=== PATIENT | female | born 1970 | race African-American/Black ===

== ENCOUNTER 2017-09-01 06:59 | Emergency (ER) | payer OTHER ==
[~2017-09-01] VITALS: Ht 165.1 cm; Wt 60.3 kg
[~2017-09-01 06:59] MED LIST: ABILIFY10 MG PO; AUGMENTIN 875875 MG PO; BACITRACIN 500U30 G1 TOP; CELEXA10 MG PO; HYDROCODON-ACE1 EAC7 PO; IBUPROFEN 600600 M1 PO; KEFLEX500 MG PO; NAPROSYN500 MG PO; NORCO 5-325 TA1 EACH PO; NORFLEX100 MG PO; PERCOCET 5-3251 EACH PO; PERCOCET PO; SILVADENE20 GM TP; TRAZODONE HCL50 MG PO
[2017-09-01 07:36] LABS: ABSOLUTE NEUTROPHILS 5.2 thou/uL (1.4-8.2); BASOPHILS 0.9 % (0.0-2.0); HEMATOCRIT 39.1 % (37.0-47.0); HEMOGLOBIN 13.6 gm/dL (12.0-15.0); LYMPHOCYTES 19.4 % (24.0-44.0); MCH 28.8 pg (26.0-34.0); MCHC 34.7 g/dL (28.0-37.0); MONOCYTES 5.4 % (1.0-8.0); PLATELET COUNT 214 thou/uL (150-400); POLYS 73.3 % (36.0-66.0); RBC 4.72 mil/uL (4.20-5.00); RDW 13.4 % (10.5-14.5)
[2017-09-01 07:48] LABS: CALCIUM 9.4 mg/dL (8.5-10.1); CREATININE 0.9 mg/dL (0.6-1.0)
[2017-09-01 07:54] LABS: ALBUMIN 3.7 g/dL (3.4-5.0); DIRECT BILIRUBIN 0.1 mg/dL (<0.1-0.3); TOTAL BILIRUBIN 0.4 mg/dL (<0.1-1.0); TOTAL PROTEIN 7.7 g/dL (6.4-8.2)
[2017-09-01 08:14] LABS: URINE BILIRUBIN NEGATIVE (Negative); URINE BLOOD NEGATIVE (Negative); URINE CLARITY CLEAR; URINE COLOR YELLOW; URINE GLUCOSE-RANDOM* NEGATIVE (Negative); URINE KETONES NEGATIVE (Negative); URINE LEUKOCYTES NEGATIVE (Negative); URINE NITRITE NEGATIVE (Negative); URINE PROTEIN (DIPSTICK) NEGATIVE (Negative); URINE SPECIFIC GRAVITY 1.025 (1.005-1.035); URINE UROBILINOGEN 0.2 E.U./dl (0.2-1.0)
[2017-09-01] MEDS ORDERED: ZOFRAN ODT4 MG PO (08:32)
[2017-09-01] MEDS ORDERED: PHENERGAN 25 MG25 M1 PO (08:32)
[2017-09-01] MEDS ORDERED: PROMS25 WY RECTAL (08:32)
[2017-09-01 09:24] VITALS: BP 118/92
== END 2017-09-01 09:25 | disposition home or self-care (01) ==
LOC: ER 06:59
PROVIDERS: Emergency Medicine
DX: F12.188 Cannabis abuse with other cannabis-induced disorder (principal); R19.7 Diarrhea, unspecified; I10 Essential (primary) hypertension; Z90.710 Acquired absence of both cervix and uterus; Z91.040 Latex allergy status; Z88.1 Allergy status to other antibiotic agents

== ENCOUNTER 2019-10-20 18:35 | Emergency (ER) | payer OTHER ==
[~2019-10-20] VITALS: Ht 162.6 cm; Wt 64.9 kg
[~2019-10-20 18:35] MED LIST changes: +PHENERGAN 25 MG25 M1 PO; +PROMS25 WY RECTAL; +ZOFRAN ODT4 MG PO; +ZOFRAN4 MG PO
[2019-10-20 20:24] VITALS: BP 142/91
== END 2019-10-20 20:25 | disposition home or self-care (01) ==
LOC: ER 18:35
DX: F10.920 Alcohol use, unspecified with intoxication, uncomplicated (principal); R11.2 Nausea with vomiting, unspecified; I10 Essential (primary) hypertension; E11.9 Type 2 diabetes mellitus without complications; F17.210 Nicotine dependence, cigarettes, uncomplicated; Z79.899 Other long term (current) drug therapy; Z91.040 Latex allergy status; Z88.1 Allergy status to other antibiotic agents

== ENCOUNTER 2020-03-13 09:05 | Emergency (ER) | payer OTHER ==
[~2020-03-13] VITALS: Ht 165.1 cm; Wt 65.8 kg
[2020-03-13] MEDS ORDERED: DESYREL150 MG PO (09:15)
[2020-03-13] MEDS ORDERED: WELLBUTRIN 75 M75 M1 PO (09:15)
[2020-03-13 09:45] LABS: URINE BLOOD NEGATIVE (Negative); URINE CLARITY CLOUDY; URINE COLOR YELLOW; URINE GLUCOSE-RANDOM* NEGATIVE (Negative); URINE KETONES 2+ (Negative); URINE LEUKOCYTES-REFLEX NEGATIVE (Negative); URINE NITRITE-REFLEX NEGATIVE (Negative); URINE PROTEIN (DIPSTICK) TRACE (Negative); URINE SPECIFIC GRAVITY 1.025 (1.005-1.035)
[2020-03-13 09:46] LABS: ICTOTEST (BILI CONFIRMATORY) Negative (Negative); URINE BILIRUBIN NEGATIVE (Negative)
[2020-03-13 12:10] LABS: HEMATOCRIT 40.7 % (37.0-47.0); HEMOGLOBIN 13.3 gm/dL (12.0-15.0); MCH 28.2 pg (26.0-34.0); MCHC 32.6 g/dL (28.0-37.0); MCV 86.6 fL (80.0-100.0); RBC 4.7 mil/uL (4.20-5.00); RDW 13.5 % (10.5-14.5); WBC 5.7 thou/uL (4.0-11.0)
[2020-03-13 13:04] LABS: CALCIUM 8.9 mg/dL (8.5-10.1); CREATININE 0.9 mg/dL (0.6-1.0); POTASSIUM 3.3 mmol/L (3.5-5.1)
[2020-03-13 13:09] LABS: ALBUMIN 3.6 g/dL (3.4-5.0); TOTAL BILIRUBIN 0.7 mg/dL (0.2-1.0); TOTAL PROTEIN 7.6 g/dL (6.4-8.2)
[2020-03-13 13:40] VITALS: BP 187/98
--- NOTE | 2020-03-15 07:28 | EKG ---
[place] [address] 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: : 1970 Requested By: Broderick Lundy Order Number: [id number] MD: Rosales Caceres Measurements Intervals [place] Rate: 67 P: 63 W[place]: 148 QRS: 0 QRSD: 82 T: 40 QT: 403 QTc: 426 Interpretive Statements Sinus rhythm No significant abnormality Compared to ECG 05/10/2010 11:14:45 No significant changes found Electronically Signed On 03-15-2020 7:28:27 [employer]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
== END 2020-03-13 13:50 | disposition home or self-care (01) ==
LOC: ER 09:05
PROVIDERS: Emergency Medicine
DX: F12.988 Cannabis use, unspecified with other cannabis-induced disorder (principal); R11.10 Vomiting, unspecified; I10 Essential (primary) hypertension; E11.9 Type 2 diabetes mellitus without complications; F17.210 Nicotine dependence, cigarettes, uncomplicated; Z79.899 Other long term (current) drug therapy; Z88.1 Allergy status to other antibiotic agents; Z91.040 Latex allergy status

== ENCOUNTER 2020-11-08 20:38 | Emergency (ER) | payer OTHER ==
[~2020-11-08] VITALS: Ht 165.1 cm; Wt 64.0 kg
[~2020-11-08 20:38] MED LIST changes: +DESYREL150 MG PO; +WELLBUTRIN 75 M75 M1 PO
[2020-11-08 20:40] VITALS: BP 127/81
[2020-11-08] MEDS ORDERED: DOXYCYCLINE 10100 MG PO (21:02)
[2020-11-08] MEDS ORDERED: HYDROCODON-ACE1 EAC7 PO (21:02)
== END 2020-11-08 21:31 | disposition home or self-care (01) ==
LOC: ER 20:38
DX: T24.002A Burn of unspecified degree of unspecified site of left lower limb, except ankle and foot, initial encounter (principal); T31.0 Burns involving less than 10% of body surface; I10 Essential (primary) hypertension; E11.9 Type 2 diabetes mellitus without complications; F12.90 Cannabis use, unspecified, uncomplicated; F17.210 Nicotine dependence, cigarettes, uncomplicated; Z79.1 Long term (current) use of non-steroidal anti-inflammatories (NSAID); Z79.899 Other long term (current) drug therapy; Z88.1 Allergy status to other antibiotic agents; Z91.040 Latex allergy status; X16.XXXA Contact with hot heating appliances, radiators and pipes, initial encounter; Y93.89 Activity, other specified; Y92.89 Other specified places as the place of occurrence of the external cause; Y99.8 Other external cause status